=== PATIENT | male | born 1965 | race Two or more races ===

== ENCOUNTER 2018-10-08 21:55 | Emergency (ER) | payer OTHER ==
[~2018-10-08] VITALS: Ht 177.8 cm; Wt 68.0 kg
[~2018-10-08 21:55] MED LIST: AVAPRO300 MG; CARVEDILOL3.125 MG; HECTOROL0.5 MCG; ISOSORBIDE DIN2.5 MG; LASIX20 MG; MAVIK1 MG; MOTRIN800 MG PO; NOVOLOG MIX 70/33 ML; VERAPAMIL ER100 MG; ZOCOR5 MG
[2018-10-08] MEDS ORDERED: PLAVIX75 MG (22:04)
[2018-10-08] MEDS ORDERED: HUMULIN 70100 UNIT/2 (22:04)
[2018-10-09] MEDS ORDERED: LEVALBUTER1.25 MG/3 IH (02:08)
[2018-10-09] MEDS ORDERED: MUCINEX DM ER1 EAC1 PO (02:08)
[2018-10-09] MEDS ORDERED: BUDESONIDE0.5 MG/2 M IH (02:08)
[2018-10-09] MEDS ORDERED: TESSALON PERLE100 M1 PO (02:08)
== END 2018-10-09 02:08 | disposition home or self-care (01) ==
LOC: ER 21:55
DX: J40 Bronchitis, not specified as acute or chronic (principal); J98.11 Atelectasis

== ENCOUNTER 2018-10-17 15:16 | Emergency (ER) | payer OTHER ==
[~2018-10-17] VITALS: Ht 177.8 cm; Wt 70.8 kg
[~2018-10-17 15:16] MED LIST changes: +BUDESONIDE0.5 MG/2 M IH; +HUMULIN 70100 UNIT/2; +LEVALBUTER1.25 MG/3 IH; +MUCINEX DM ER1 EAC1 PO; +PLAVIX75 MG; +TESSALON PERLE100 M1 PO
[2018-10-17] MEDS ORDERED: LIPITOR40 MG (15:35)
[2018-10-17] MEDS ORDERED: CARDURA1 MG (15:36)
== END 2018-10-17 20:50 | disposition home or self-care (01) ==
LOC: ER 15:16
DX: J45.998 Other asthma (principal)

== ENCOUNTER 2019-04-02 12:23 | Emergency (ER) | payer OTHER ==
[~2019-04-02] VITALS: Ht 175.3 cm; Wt 72.6 kg
[~2019-04-02 12:23] MED LIST changes: +CARDURA1 MG; +LIPITOR40 MG
== END 2019-04-02 17:39 | disposition home or self-care (01) ==
LOC: ER 12:23
DX: M54.5 Low back pain (principal)